=== PATIENT | male | born 1990 | race Two or more races ===

== ENCOUNTER 2018-01-10 11:30 | Emergency (ER) | payer OTHER ==
[2018-01-10 12:11] LABS: APPEARANCE,URINE CLEAR; BILIRUBIN,URINE NEGATIVE (NEGATIVE); COLOR,URINE YELLOW; GLUCOSE, URINE NEGATIVE (NEGATIVE); KETONES,URINE NEGATIVE (NEGATIVE); LEUKOCYTE ESTERASE,URINE SMALL (NEGATIVE); NITRITE,URINE NEGATIVE (NEGATIVE); PROTEIN,URINE NEGATIVE (NEGATIVE); URINE SPECIFIC GRAVITY 1.005
[2018-01-10] MEDS ORDERED: AZITHROMYCIN 250 MG TABLET PO ONE (12:29)
[2018-01-10] MEDS ORDERED: LIDOCAINE 1% INJ-PF (10 MG/ML) 30 ML SDV INJ ONE (12:29)
[2018-01-10] MEDS ORDERED: CEFTRIAXONE INJ 250 MG VIAL IM ONE (12:29)
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
[2018-01-10 13:23] VITALS: BP 135/87
[2018-01-10 14:31] LABS: CHLAM PCR DETECTED (NOT DETECT); GON PCR NOT DETECTED (NOT DETECT)
== END 2018-01-10 13:22 | disposition home or self-care (01) ==
LOC: ER 11:30
DX: N39.0 Urinary tract infection, site not specified (principal); R30.0 Dysuria; R35.0 Frequency of micturition; R31.9 Hematuria, unspecified; F17.200 Nicotine dependence, unspecified, uncomplicated
CPT/HCPCS: 99283; 96372; 87086; 81001; 87491; 87591; J3490; J0696

== ENCOUNTER 2018-02-26 13:14 | Emergency (ER) | payer OTHER ==
[2018-02-26 13:20] VITALS: BP 127/76
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
== END 2018-02-26 16:28 | disposition home or self-care (01) ==
LOC: ER 13:14
DX: S39.012A Strain of muscle, fascia and tendon of lower back, initial encounter (principal); S29.012A Strain of muscle and tendon of back wall of thorax, initial encounter; S16.1XXA Strain of muscle, fascia and tendon at neck level, initial encounter; R51 Headache; M54.2 Cervicalgia; V43.51XA Car driver injured in collision with sport utility vehicle in traffic accident, initial encounter; F17.200 Nicotine dependence, unspecified, uncomplicated
CPT/HCPCS: 70450; 72070; 72110; 72125; 99284